=== PATIENT | female | born 1940 | race Caucasian/White ===

== ENCOUNTER 2023-06-24 22:50 | Emergency (ER) | payer MEDICARE ==
[~2023-06-24] VITALS: Ht 165.1 cm; Wt 99.0 kg
[2023-06-24 23:14] VITALS: O2SAT 98
[2023-06-24 23:39] LABS: GLUCOSE URINE NEGATIVE (NEGATIVE); KETONES URINE NEGATIVE (NEGATIVE)
[2023-06-25 00:07] LABS: CLARITY URINE TURBID (CLEAR); COLOR URINE BLOODY (YELLOW); SPECIFIC GRAVITY URINE 1.025 (1.005-1.030)
[2023-06-25 00:08] LABS: LEUKOCYTE ESTERASE URINE TRACE (NEGATIVE); NITRITE URINE NEGATIVE (NEGATIVE); OCCULT BLOOD URINE 3+ (NEGATIVE); PROTEIN URINE 2+ (NEGATIVE); UROBILINOGEN URINE 0.2 E.U./dL (0.2-1.0)
[2023-06-25 01:29] LABS: BASOPHILS % 0.5 % (0.0-2.0); EOSINOPHILS % 0.9 % (0.0-5.0); HEMATOCRIT. 40.5 % (36.0-48.0); HEMOGLOBIN. 13.8 g/dL (12.0-16.0); MEAN CORPUSCULAR HEMOGLOBIN 31.6 pg (28.0-32.0); MEAN CORPUSCULAR VOLUME 92.7 fL (81.0-99.0); MEAN PLATELET VOLUME 8.1 fl (7.4-10.4); MONOCYTES % 7.3 % (2.0-8.0); NEUTROPHILS % 80.3 % (40.0-76.0); PLATELET 212 x1000/uL (130-400); RED BLOOD CELL COUNT 4.36 mill/uL (4.2-5.4); RED CELL DISTRIBUTION WIDTH 13.7 % (11.6-14.6)
[2023-06-25 01:34] LABS: CALCIUM 10.2 mg/dL (8.7-10.4)
[2023-06-25 02:57] LABS: WBC URINE 25-50 /hpf (0-2)
[2023-06-25 02:58] LABS: RBC URINE TNTC /hpf (0-2)
[2023-06-25 02:59] LABS: BACTERIA URINE TRACE; SQUAMOUS EPITHELIAL CELL URINE NONE SEEN /lpf (RARE/1+)
[2023-06-25] MEDS ORDERED: SULF1TAB48 MT (03:38)
[2023-06-25 03:56] VITALS: BP 130/99; PULSE 74; RESP 16; TEMP 97.9
== END 2023-06-25 03:56 | disposition home or self-care (01) ==
LOC: ER 22:50
DX: N39.0 Urinary tract infection, site not specified (principal); I10 Essential (primary) hypertension; I50.9 Heart failure, unspecified; Z98.890 Other specified postprocedural states
CPT/HCPCS: 36415; 76770; 80048; 81003; 85025; 99284